=== PATIENT | female | born 1975 | race Caucasian/White ===

== ENCOUNTER → 2018-12-01 | Outpatient (CLI) | payer OTHER ==
[~2018-12-01] MED LIST: BACTROBAN2% TP; ESCITALOPRAM; HIBICLENS TP; IRON325 MG PO; LEVAQUIN 250MG250 MG PO; METFORMIN500 MG PO; MICARDIS 40MG40 MG PO; XANAX0.25 MG PO; [UNRECOGNIZED DRUG - OTHER]
== END ==
LOC: COL.RAD 07:18
DX: E04.2 Nontoxic multinodular goiter (principal)

== ENCOUNTER → 2018-12-18 | Outpatient (CLI) | payer OTHER ==
--- NOTE | 2018-12-13 08:39 | NUR ---
UNABLE TO LEAVE A MSG DUE TO MAILBOX BEING FULL.
[~2018-12-18] VITALS: Ht 170.2 cm; Wt 124.0 kg
[~2018-12-18] MED LIST changes: +CALCIUM WITH D31 CTB PO; +ESTRACE0.5 MG PO; +LASIX 20MG TABL20 MG PO; +PROZAC 10MG10 MG PO; +VITAMIND3 5000 PO
[2018-12-18 09:13] VITALS: BP 151/99; PULSE 98
--- NOTE | 2018-12-18 09:45 | NUR ---
pt leaves ambulatory to lobby to return to work. refused snack. went over dc instructions again before lseaving
[2018-12-18 09:48] VITALS: BP 141/86; PULSE 70
== END ==
LOC: COL.RAD 08:56
DX: E04.1 Nontoxic single thyroid nodule (principal)

== ENCOUNTER → 2019-02-28 | Outpatient (CLI) | payer OTHER ==
[2019-02-28 08:47] LABS: HEMATOCRIT 40.4 % (37.0-47.0); HEMOGLOBIN 13.5 g/dl (12.5-16.0); MEAN CELL VOLUME 86 fl (80.0-100.0); MEAN CORPUSCULAR HEMOGLOBIN 29 pg (27.0-31.0); MEAN CORPUSCULAR HGB CONC 33 g/dl (33.0-37.0); MEAN PLATELET VOLUME 9.7 fl (7.4-10.4); PLATELET COUNT 243 K/mm3 (130-400); REDCELL DISTRIBUTION WIDTH-CV 13.2 % (11.5-14.5)
[2019-02-28 08:55] LABS: ALBUMIN 3.9 gm/dL (3.5-5.0); BILIRUBIN,TOTAL 0.5 mg/dL (0.0-1.0); CALCIUM 8.8 mg/dL (8.4-10.2); CREATININE, serum 0.56 (0.52-1.25); POTASSIUM 3.6 mmol/L (3.4-5.0); TOTAL PROTEIN 6.7 gm/dL (6.4-8.2)
== END ==
LOC: COL.LAB 08:20
PROVIDERS: Family Medicine
DX: E55.9 Vitamin D deficiency, unspecified (principal); Z98.84 Bariatric surgery status

== ENCOUNTER 2021-02-04 16:32 | Emergency (ER) | payer BC ==
[~2021-02-04] VITALS: Ht 167.6 cm; Wt 112.7 kg
[2021-02-04 16:44] VITALS: TEMP 98.2
[2021-02-04 18:19] LABS: BASO # 0.1 (0.0-0.2); BASO % 1.6 % (0.0-2.0); EOS # 0.3 (0.0-0.7); EOS % 5.2 % (0-4.0); GRAN # 3.7 (1.4-6.5); HEMATOCRIT 40.1 % (37.0-47.0); HEMOGLOBIN 13.5 g/dl (12.5-16.0); LYMPH # 1.5 (1.2-3.4); LYMPH % 24.9 % (20.0-51.0); MEAN CELL VOLUME 85 fl (80.0-100.0); MEAN CORPUSCULAR HEMOGLOBIN 29 pg (27.0-31.0); MEAN CORPUSCULAR HGB CONC 34 g/dl (33.0-37.0); MONO # 0.5 (0.1-0.6); PLATELET COUNT 275 K/mm3 (130-400)
[2021-02-04 18:32] LABS: ALANINE AMINOTRANSFERASE 29 U/L (4-34); ALBUMIN 3.7 gm/dL (3.5-5.0); ALKALINE PHOSPHATASE 65 U/L (50-136); ANION GAP 4 mmol/L (7-16); AST,SGOT 27 U/L (15-37); BILIRUBIN,TOTAL < 0.1 mg/dL (0.0-1.0); BLOOD UREA NITROGEN 17 mg/dL (7-17); CALCIUM 8.9 mg/dL (8.4-10.2); CARBON DIOXIDE 26 mmol/L (22-30); CHLORIDE 110 mmol/L (98-107); CREATININE, serum 0.84 (0.52-1.25); GLUCOSE 88 mg/dL (74-106); LIPASE 76 U/L (23-300); POTASSIUM 4.4 mmol/L (3.4-5.0); SODIUM 140 mmol/L (137-145); TOTAL PROTEIN 6.2 gm/dL (6.4-8.2)
[2021-02-04 18:34] LABS: C-REACTIVE PROTEIN < 0.5 mg/dL (0.0-0.9)
[2021-02-04 19:34] LABS: COLLECTION METHOD CLEAN CATCH
[2021-02-04 19:45] LABS: PH 7 (5-8); URINE APPEARANCE Hazy; URINE BACTERIA Rare /hpf; URINE BILIRUBIN Negative (NEGATIVE); URINE BLOOD Negative (NEGATIVE); URINE COLOR Yellow; URINE GLUCOSE Negative (NEGATIVE); URINE KETONE Negative (NEGATIVE); URINE LEUKOCYTE ESTERASE Negative (NEGATIVE); URINE NITRATE Negative (NEGATIVE); URINE PROTEIN(semi-quant) Negative (NEGATIVE); URINE RBC 0-2 /hpf; URINE UROBILINOGEN Negative (NEGATIVE)
[2021-02-04 21:45] VITALS: BP 144/97; PULSE 63
== END 2021-02-04 21:45 | disposition home or self-care (01) ==
LOC: COL.ER 16:32
PROVIDERS: Nurse Practitioner
DX: K52.9 Noninfective gastroenteritis and colitis, unspecified (principal); F41.9 Anxiety disorder, unspecified; Z79.899 Other long term (current) drug therapy
CPT/HCPCS: J1100; J1170; J2405; J7030; Q9967

== ENCOUNTER 2021-02-27 09:02 | Day surgery (SDC) | payer BC ==
[~2021-02-27] VITALS: Ht 167.6 cm; Wt 110.5 kg
[2021-02-27 10:26] VITALS: BP 130/96; PULSE 79; TEMP 98.2
[2021-02-27] MEDS ORDERED: ULTRAM 50MG TAB50 MG PO (10:30)
[2021-02-27] MEDS ORDERED: NURTEC ODT75 MG PO (10:30)
[2021-02-27 12:15] VITALS: BP 109/74; PULSE 72; TEMP 97.6
[2021-02-27 12:30] VITALS: BP 109/74; PULSE 68
[2021-02-27 12:45] VITALS: BP 111/79; PULSE 68
[2021-02-27 13:00] VITALS: BP 114/50; PULSE 63
--- NOTE | 2021-02-27 13:17 | NUR ---
1215 Pt returns from endo procedure via cart and RN assist to [facility]. Pt ambulates from cart to recliner with RN assist. Monitors on and alarms set. Call light within reach. Report received from ITZEL Anaya. Pt alert and oriented. Pt requests water and saltines. Pt denies any pain or nausea. 1230 Pt taking food and drink well. No complications noted. 1314 Discharge instructions given to pt. All questions answered to her satisfaction. Handed to pt are a thank you card and discharge information. 1317 Pt transferred out of the hospital via wheelchair and ITZEL Sutherland assist, to private vehicle driven by pt's son.
== END 2021-02-27 13:17 | disposition home or self-care (01) ==
LOC: SDCO 09:02
DX: R10.9 Unspecified abdominal pain (principal); D12.9 Benign neoplasm of anus and anal canal; R11.2 Nausea with vomiting, unspecified; R19.7 Diarrhea, unspecified; R93.3 Abnormal findings on diagnostic imaging of other parts of digestive tract; K57.30 Diverticulosis of large intestine without perforation or abscess without bleeding; G43.909 Migraine, unspecified, not intractable, without status migrainosus; E78.5 Hyperlipidemia, unspecified; D50.9 Iron deficiency anemia, unspecified; E66.01 Morbid (severe) obesity due to excess calories; E28.2 Polycystic ovarian syndrome; F32.9 Major depressive disorder, single episode, unspecified; F41.1 Generalized anxiety disorder; Z20.822 Contact with and (suspected) exposure to COVID-19; Z98.84 Bariatric surgery status; Z79.899 Other long term (current) drug therapy; Z79.891 Long term (current) use of opiate analgesic; Z68.39 Body mass index [BMI] 39.0-39.9, adult; Z90.710 Acquired absence of both cervix and uterus; Z82.49 Family history of ischemic heart disease and other diseases of the circulatory system; Z80.9 Family history of malignant neoplasm, unspecified
CPT/HCPCS: J2704; J7030